=== PATIENT | female | born 1965 | race African-American/Black ===

== ENCOUNTER 2018-07-29 16:57 | Emergency (ER) | payer MEDICARE, OTHER ==
[~2018-07-29] VITALS: Ht 160 cm; Wt 75.0 kg
[~2018-07-29 16:57] MED LIST: ATOR20TA PO; CINA30 PO; CLON0.3T PO; DIPH25CA83 PO; HYDR100T26 PO; KEPP500 PO; LISI40TA4 PO; LOSA50TA20 PO; NIFE30TA94 PO; PANT40TA4 PO; REN800; SERT25TA74 PO; SEVE800T8 PO
[2018-07-29 17:30] VITALS: BP 147/105
[2018-07-30 00:41] LABS: HEMATOCRIT 32.1 % (36.0-48.0); HEMOGLOBIN 10.3 g/dL (12.0-16.0); MEAN CORPUSCULAR VOLUME 90.1 fL (81.0-99.0); PLATELET 152 x1000/uL (130-400); RED BLOOD CELL COUNT 3.56 mill/uL (4.2-5.4); RED CELL DISTRIBUTION WIDTH 19.3 % (11.6-14.6)
[2018-07-30 00:45] LABS: CHLORIDE 98 mEq/L (98-107)
== END 2018-07-30 01:30 | disposition left against medical advice (07) ==
LOC: ER 16:57
DX: N18.6 End stage renal disease (principal); Z45.010 Encounter for checking and testing of cardiac pacemaker pulse generator [battery]; I25.2 Old myocardial infarction; R56.9 Unspecified convulsions; Z99.2 Dependence on renal dialysis; Z86.73 Personal history of transient ischemic attack (TIA), and cerebral infarction without residual deficits
CPT/HCPCS: 36415; 85027; 99283

== ENCOUNTER 2018-07-30 13:09 | Inpatient (IN) | payer MEDICARE, OTHER ==
[~2018-07-30] VITALS: Ht 160 cm; Wt 75.0 kg
[2018-07-30 16:16] LABS: BASOPHILS % 1.2 % (0.0-2.0); EOSINOPHILS % 4.3 % (0.0-5.0); HEMATOCRIT. 29.5 % (36.0-48.0); HEMOGLOBIN. 9.8 g/dL (12.0-16.0); LYMPHOCYTES % 11.2 % (20.0-50.0); MEAN CORPUSCULAR HEMOGLOBIN 29.8 pg (28.0-32.0); MEAN CORPUSCULAR VOLUME 89.4 fL (81.0-99.0); MEAN PLATELET VOLUME 8.5 fl (7.4-10.4); MONOCYTES % 10.3 % (2.0-8.0); PLATELET 177 x1000/uL (130-400); RED CELL DISTRIBUTION WIDTH 19.5 % (11.6-14.6)
[2018-07-30 16:19] LABS: INR 1.2
[2018-07-30 16:24] LABS: CHLORIDE 98 mEq/L (98-107)
[2018-07-30 16:28] LABS: ETHANOL BLOOD < 10 mg/dL
[2018-07-30] MEDS ORDERED: FUROSEMIDE 100MG/10ML VIAL IV STA (16:36)
[2018-07-30] MEDS ORDERED: INSULIN REGULAR (HUMULIN R) 300UNITS/3ML IV ONE ×2 (16:45→17:00)
[2018-07-30] MEDS ORDERED: CALCIUM CHLORIDE 1GM/10ML SYR IV ONE (16:45)
[2018-07-30] MEDS ORDERED: SODIUM POLYSTYRENE SULFONATE 15 G/60 ML BOT PO ONE (16:45)
[2018-07-30] MEDS ORDERED: ALBUTEROL (0.083%) 2.5MG/3ML NEB HHN ONE (16:45)
[2018-07-30] MEDS ORDERED: DEXTROSE 50% WATER 50ML SYRINGE IV ONE (16:45)
[2018-07-30] MEDS ORDERED: SODIUM BICARBONATE 8.4% 1 MEQ/ML 50ML SYR IV ONE (16:45)
[2018-07-30] MEDS ORDERED: GUAIFENESIN 200MG/10ML SUGAR FREE UDC PO PRN (17:45)
[2018-07-30] MEDS ORDERED: NITROGLYCERIN 0.4MG TABLET SL SL PRN (17:45)
[2018-07-30] MEDS ORDERED: MAGNESIUM/ALUMINUM HYDROXIDE/SIMETHICONE 30ML UDC PO PRN (17:45)
[2018-07-30] MEDS ORDERED: IPRATROPIUM/ALBUTEROL 0.5-3(2.5)MG/3ML NEB INH PRN (17:45)
[2018-07-30] MEDS ORDERED: ZOLPIDEM TARTRATE 5MG TABLET PO PRN (17:45)
[2018-07-30 20:00] VITALS: BP 195/108
[2018-07-30] MEDS: METOPROLOL TARTRATE 25MG TABLET PO SCH (21:00)
[2018-07-30] MEDS ORDERED: SODIUM POLYSTYRENE SULFONATE 15 G/60 ML BOT PO NR (23:00)
[2018-07-31] VITALS (7 sets, daily range): BP systolic 112–193; BP diastolic 75–94
[2018-07-31] MEDS: ENOXAPARIN 30MG/0.3ML SYR SUBCUT SCH ×2 (01:32→20:25)
[2018-07-31] MEDS: LEVETIRACETAM 500MG TABLET PO SCH ×3 (01:33→20:24)
[2018-07-31] MEDS: FAMOTIDINE 20MG TABLET PO SCH ×2 (01:33→09:50)
[2018-07-31] MEDS: METOPROLOL TARTRATE 25MG TABLET PO SCH ×2 (09:50→20:24)
[2018-07-31] MEDS: ASPIRIN 325MG EC TABLET PO SCH (09:50)
[2018-07-31] MEDS: FOLIC ACID/VITAMIN B COMP W-C TABLET PO SCH (09:51)
[2018-07-31] MEDS: SEVELAMER CARBONATE 800 MG TABLET PO SCH ×3 (09:51→17:50)
[2018-07-31] MEDS: AMLODIPINE 10MG TABLET PO SCH (09:51)
[2018-07-31] MEDS ORDERED: LIDOCAINE HCL 1% 20ML VIAL (Pyxis) INJ ONE (10:16)
[2018-07-31] MEDS ORDERED: SODIUM BICARBONATE 4% (2.4MEQ) 5ML VIAL IV ONE (10:16)
[2018-07-31] MEDS ORDERED: IOHEXOL-300 100 ML BOTTLE ONE (10:59)
[2018-07-31 13:11] LABS: BASOPHILS % 1.1 % (0.0-2.0); EOSINOPHILS % 8.3 % (0.0-5.0); HEMOGLOBIN. 10.1 g/dL (12.0-16.0); MEAN CORPUSCULAR VOLUME 89.1 fL (81.0-99.0); MEAN PLATELET VOLUME 8.1 fl (7.4-10.4); MONOCYTES % 7.8 % (2.0-8.0); NEUTROPHILS % 74.8 % (40.0-76.0); PLATELET 192 x1000/uL (130-400); RED BLOOD CELL COUNT 3.48 mill/uL (4.2-5.4); RED CELL DISTRIBUTION WIDTH 19.6 % (11.6-14.6)
[2018-07-31 14:14] LABS: PHOSPHORUS 8.2 mg/dL (2.5-4.9)
[2018-07-31] MEDS: TRAMADOL 50MG TABLET PO PRN (21:33)
[2018-07-31] MEDS: ONDANSETRON HCL 4MG/2ML INJ IV PRN (23:17)
[2018-07-31] MEDS: DIPHENHYDRAMINE 50MG/ML VIAL IV PRN (23:18)
[2018-08-01] VITALS: BP 99/64
[2018-08-01 04:00] VITALS: BP 121/76
[2018-08-01] MEDS: SEVELAMER CARBONATE 800 MG TABLET PO SCH ×4 (07:50→17:50)
[2018-08-01 08:00] VITALS: BP 136/90
[2018-08-01 08:07] LABS: BASOPHILS % 1.1 % (0.0-2.0); EOSINOPHILS % 7.1 % (0.0-5.0); HEMATOCRIT. 28.2 % (36.0-48.0); HEMOGLOBIN. 9.2 g/dL (12.0-16.0); LYMPHOCYTES % 7.8 % (20.0-50.0); MEAN CORPUSCULAR VOLUME 88.5 fL (81.0-99.0); MEAN PLATELET VOLUME 8.2 fl (7.4-10.4); MONOCYTES % 8.5 % (2.0-8.0); NEUTROPHILS % 75.5 % (40.0-76.0); PLATELET 156 x1000/uL (130-400); RED BLOOD CELL COUNT 3.19 mill/uL (4.2-5.4); RED CELL DISTRIBUTION WIDTH 19.1 % (11.6-14.6)
[2018-08-01] MEDS: LEVETIRACETAM 500MG TABLET PO SCH ×2 (08:11→20:44)
[2018-08-01] MEDS: FAMOTIDINE 20MG TABLET PO SCH (08:11)
[2018-08-01] MEDS: TRAMADOL 50MG TABLET PO PRN (08:11)
[2018-08-01] MEDS: FOLIC ACID/VITAMIN B COMP W-C TABLET PO SCH (08:11)
[2018-08-01] MEDS: ASPIRIN 325MG EC TABLET PO SCH (08:11)
[2018-08-01] MEDS: AMLODIPINE 10MG TABLET PO SCH (08:59)
[2018-08-01] MEDS: METOPROLOL TARTRATE 25MG TABLET PO SCH ×3 (08:59→20:47)
[2018-08-01 10:59] LABS: PHOSPHORUS 8.1 mg/dL (2.5-4.9)
[2018-08-01] MEDS ORDERED: LIDOCAINE HCL 1% 20ML VIAL (Pyxis) INJ ONE (11:03)
[2018-08-01 12:08] VITALS: BP 157/98
[2018-08-01] MEDS ORDERED: GELATIN SPONGE,ABSORBABLE 12-7MM SPONGE ONE (12:20)
[2018-08-01 16:20] VITALS: BP 171/96
[2018-08-01] MEDS ORDERED: SODIUM POLYSTYRENE SULFONATE 15 G/60 ML BOT PO NR (17:00)
[2018-08-01] MEDS: CLONIDINE 0.1MG TABLET PO PRN (17:14)
[2018-08-01 19:30] LABS: HEPATITIS B SURFACE AB 594.4 mIU/mL
[2018-08-01 19:41] LABS: HEPATITIS B SURFACE ANTIGEN NEGATIVE
[2018-08-02] VITALS: BP 150/76
[2018-08-02 04:00] VITALS: BP 129/61
[2018-08-02 08:28] VITALS: BP 118/66
[2018-08-02] MEDS: AMLODIPINE 10MG TABLET PO SCH (09:00)
[2018-08-02] MEDS: SEVELAMER CARBONATE 800 MG TABLET PO SCH ×3 (10:56→17:39)
[2018-08-02] MEDS: FOLIC ACID/VITAMIN B COMP W-C TABLET PO SCH (10:56)
[2018-08-02] MEDS: ASPIRIN 325MG EC TABLET PO SCH (10:56)
[2018-08-02] MEDS: FAMOTIDINE 20MG TABLET PO SCH (10:57)
[2018-08-02] MEDS: METOPROLOL TARTRATE 25MG TABLET PO SCH (10:57)
[2018-08-02] MEDS: LEVETIRACETAM 500MG TABLET PO SCH ×2 (10:57→20:32)
[2018-08-02] MEDS: TRAMADOL 50MG TABLET PO PRN (11:10)
[2018-08-02 12:08] VITALS: BP 144/92
[2018-08-02] MEDS: LORAZEPAM 2MG/ML CPJ IV PRN ×2 (13:18→20:33)
[2018-08-02 16:03] VITALS: BP 148/56
[2018-08-02 20:00] VITALS: BP 127/81
[2018-08-02] MEDS: METOPROLOL TARTRATE 50MG TABLET PO SCH (20:33)
[2018-08-03] VITALS (8 sets, daily range): BP systolic 113–149; BP diastolic 60–88
[2018-08-03] MEDS: TRAMADOL 50MG TABLET PO PRN (00:07)
[2018-08-03] MEDS: LORAZEPAM 2MG/ML CPJ IV PRN ×3 (00:55→22:48)
[2018-08-03 04:11] LABS: HEMATOCRIT. 26.1 % (36.0-48.0); HEMOGLOBIN. 8.7 g/dL (12.0-16.0); MEAN CORPUSCULAR HEMOGLOBIN 29.4 pg (28.0-32.0); MEAN CORPUSCULAR VOLUME 87.9 fL (81.0-99.0); MEAN PLATELET VOLUME 7.9 fl (7.4-10.4); PLATELET 129 x1000/uL (130-400); RED BLOOD CELL COUNT 2.97 mill/uL (4.2-5.4); RED CELL DISTRIBUTION WIDTH 19.1 % (11.6-14.6)
[2018-08-03 04:24] LABS: PHOSPHORUS 6.3 mg/dL (2.5-4.9)
[2018-08-03] MEDS: SEVELAMER CARBONATE 800 MG TABLET PO SCH ×4 (07:50→17:11)
[2018-08-03] MEDS: AMLODIPINE 5MG TABLET PO SCH (08:32)
[2018-08-03] MEDS: METOPROLOL TARTRATE 50MG TABLET PO SCH ×2 (08:32→22:47)
[2018-08-03] MEDS: FOLIC ACID/VITAMIN B COMP W-C TABLET PO SCH (08:32)
[2018-08-03] MEDS: LEVETIRACETAM 500MG TABLET PO SCH ×2 (08:32→22:46)
[2018-08-03] MEDS: ASPIRIN 325MG EC TABLET PO SCH (08:33)
[2018-08-03] MEDS: FAMOTIDINE 20MG TABLET PO SCH (08:33)
[2018-08-03] MEDS: ACETAMINOPHEN 325MG TABLET PO PRN (22:46)
[2018-08-03] MEDS: EPOETIN ALFA 4000UNITS/ML VIAL SUBCUT SCH (22:47)
[2018-08-04] VITALS: BP 114/68
[2018-08-04 04:00] VITALS: BP 102/71
[2018-08-04 08:00] VITALS: BP 129/71
[2018-08-04] MEDS: SEVELAMER CARBONATE 800 MG TABLET PO SCH ×3 (08:26→17:37)
[2018-08-04] MEDS: FAMOTIDINE 20MG TABLET PO SCH (08:26)
[2018-08-04] MEDS: LEVETIRACETAM 500MG TABLET PO SCH ×2 (08:26→20:35)
[2018-08-04] MEDS: FOLIC ACID/VITAMIN B COMP W-C TABLET PO SCH (08:26)
[2018-08-04] MEDS: METOPROLOL TARTRATE 50MG TABLET PO SCH ×2 (08:26→20:47)
[2018-08-04] MEDS: ASPIRIN 325MG EC TABLET PO SCH (08:26)
[2018-08-04] MEDS: AMLODIPINE 5MG TABLET PO SCH (08:26)
[2018-08-04] MEDS: ACETAMINOPHEN 325MG TABLET PO PRN ×2 (08:27→18:51)
[2018-08-04] MEDS: LORAZEPAM 2MG/ML CPJ IV PRN ×2 (08:36→20:48)
[2018-08-04 12:00] VITALS: BP 83/34
[2018-08-04 14:12] LABS: PLATELET ESTIMATE NORMAL
[2018-08-04] MEDS: DOCUSATE SODIUM 100MG CAPSULE PO PRN (14:12)
[2018-08-04 16:00] VITALS: BP 88/59
[2018-08-04 20:00] VITALS: BP 124/79
[2018-08-05 04:00] VITALS: BP_SYST 119; BP_SYST 148; BP_DIAS 58; BP_DIAS 76
[2018-08-05] MEDS: DOCUSATE SODIUM 100MG CAPSULE PO PRN (06:43)
[2018-08-05] MEDS: SEVELAMER CARBONATE 800 MG TABLET PO SCH ×3 (06:57→18:12)
[2018-08-05 07:00] VITALS: BP 114/78
[2018-08-05 07:34] LABS: HEMATOCRIT. 29.5 % (36.0-48.0); HEMOGLOBIN. 9.4 g/dL (12.0-16.0); MEAN CORPUSCULAR HEMOGLOBIN 28.6 pg (28.0-32.0); MEAN CORPUSCULAR VOLUME 89.3 fL (81.0-99.0); RED CELL DISTRIBUTION WIDTH 19.5 % (11.6-14.6)
[2018-08-05 07:35] LABS: MEAN PLATELET VOLUME 8.5 fl (7.4-10.4); PLATELET 169 x1000/uL (130-400)
[2018-08-05] MEDS ORDERED: VANCOMYCIN 1 G PREMIX 200 ML IV ONE (08:45)
[2018-08-05] MEDS: AMLODIPINE 5MG TABLET PO SCH (09:00)
[2018-08-05] MEDS: METOPROLOL TARTRATE 50MG TABLET PO SCH ×2 (09:00→21:26)
[2018-08-05] MEDS: LEVETIRACETAM 500MG TABLET PO SCH ×2 (09:18→21:26)
[2018-08-05] MEDS: ASPIRIN 325MG EC TABLET PO SCH (09:18)
[2018-08-05] MEDS: FAMOTIDINE 20MG TABLET PO SCH (09:19)
[2018-08-05] MEDS: FOLIC ACID/VITAMIN B COMP W-C TABLET PO SCH (09:21)
[2018-08-05] MEDS ORDERED: VANCOMYCIN 1250MG in DEXTROSE 5% WATER 250ML IV SCH (11:00)
[2018-08-05] MEDS: LORAZEPAM 2MG/ML CPJ IV PRN ×2 (11:30→19:16)
[2018-08-05 12:00] VITALS: BP 121/75
[2018-08-05 13:29] LABS: PLATELET ESTIMATE NORMAL
[2018-08-05] MEDS: CEFTRIAXONE 1 G PREMIX 50 ML IV SCH (14:03)
[2018-08-05 16:00] VITALS: BP 157/90
[2018-08-05 20:00] VITALS: BP 141/96
[2018-08-05] MEDS: EPOETIN ALFA 4000UNITS/ML VIAL SUBCUT SCH (21:26)
[2018-08-06] VITALS: BP 129/80
[2018-08-06] MEDS: LORAZEPAM 2MG/ML CPJ IV PRN ×4 (03:42→22:56)
[2018-08-06 04:00] VITALS: BP 118/79
[2018-08-06 07:20] LABS: HEMATOCRIT. 26.8 % (36.0-48.0); MEAN CORPUSCULAR HEMOGLOBIN 29.3 pg (28.0-32.0); MEAN CORPUSCULAR VOLUME 87.3 fL (81.0-99.0); MEAN PLATELET VOLUME 8.4 fl (7.4-10.4); PLATELET 174 x1000/uL (130-400); RED BLOOD CELL COUNT 3.07 mill/uL (4.2-5.4); RED CELL DISTRIBUTION WIDTH 18.8 % (11.6-14.6)
[2018-08-06] MEDS: SEVELAMER CARBONATE 800 MG TABLET PO SCH ×4 (07:50→17:50)
[2018-08-06 07:59] LABS: PHOSPHORUS 5.7 mg/dL (2.5-4.9)
[2018-08-06] MEDS: METOPROLOL TARTRATE 50MG TABLET PO SCH ×2 (09:00→21:00)
[2018-08-06] MEDS: ASPIRIN 325MG EC TABLET PO SCH (09:00)
[2018-08-06] MEDS: AMLODIPINE 5MG TABLET PO SCH (09:00)
[2018-08-06] MEDS: FOLIC ACID/VITAMIN B COMP W-C TABLET PO SCH (10:16)
[2018-08-06] MEDS: FAMOTIDINE 20MG TABLET PO SCH (10:16)
[2018-08-06] MEDS: LEVETIRACETAM 500MG TABLET PO SCH ×2 (10:16→22:42)
[2018-08-06] MEDS: CEFTRIAXONE 1 G PREMIX 50 ML IV SCH (10:22)
[2018-08-06 10:38] LABS: PLATELET ESTIMATE NORMAL
[2018-08-06] MEDS ORDERED: VANCOMYCIN 1500MG in DEXTROSE 5% WATER 250ML IV SCH (12:00)
[2018-08-06 20:00] VITALS: BP 120/78
[2018-08-06] MEDS: EPOETIN ALFA 10000UNITS/ML VIAL SUBCUT SCH (22:43)
[2018-08-07] VITALS: BP 125/80
[2018-08-07 04:00] VITALS: BP 127/82
[2018-08-07 07:14] LABS: HIV SCREEN 4G Non Reactive (Non Reactive)
[2018-08-07] MEDS: SEVELAMER CARBONATE 800 MG TABLET PO SCH ×3 (07:50→17:50)
[2018-08-07 07:56] LABS: HEMOGLOBIN. 9.1 g/dL (12.0-16.0); MEAN CORPUSCULAR VOLUME 88.9 fL (81.0-99.0); MEAN PLATELET VOLUME 8.1 fl (7.4-10.4); PLATELET 165 x1000/uL (130-400); RED BLOOD CELL COUNT 3.15 mill/uL (4.2-5.4); RED CELL DISTRIBUTION WIDTH 18.9 % (11.6-14.6)
[2018-08-07 08:00] VITALS: BP 154/89
[2018-08-07 08:40] LABS: PHOSPHORUS 5.4 mg/dL (2.5-4.9)
[2018-08-07] MEDS: ACETAMINOPHEN 325MG TABLET PO PRN (09:20)
[2018-08-07] MEDS: FOLIC ACID/VITAMIN B COMP W-C TABLET PO SCH (09:20)
[2018-08-07] MEDS: AMLODIPINE 5MG TABLET PO SCH (09:22)
[2018-08-07] MEDS: LEVETIRACETAM 500MG TABLET PO SCH ×2 (09:22→21:04)
[2018-08-07] MEDS: FAMOTIDINE 20MG TABLET PO SCH (09:22)
[2018-08-07] MEDS: METOPROLOL TARTRATE 50MG TABLET PO SCH ×2 (09:22→21:04)
[2018-08-07] MEDS: ASPIRIN 325MG EC TABLET PO SCH (09:22)
[2018-08-07] MEDS: CEFTRIAXONE 1 G PREMIX 50 ML IV SCH (09:23)
[2018-08-07] MEDS: LORAZEPAM 2MG/ML CPJ IV PRN ×3 (09:25→22:08)
[2018-08-07 10:24] LABS: PLATELET ESTIMATE NORMAL
[2018-08-07] MEDS ORDERED: TRAMADOL 50MG TABLET PO PRN (11:30)
[2018-08-07 12:00] VITALS: BP 122/76
[2018-08-07 16:00] VITALS: BP 130/87
[2018-08-07 20:00] VITALS: BP 129/86
[2018-08-08] VITALS: BP 133/78
[2018-08-08 04:00] VITALS: BP 126/77
[2018-08-08] MEDS: SEVELAMER CARBONATE 800 MG TABLET PO SCH ×4 (07:50→17:15)
[2018-08-08 08:00] VITALS: BP 144/93
[2018-08-08] MEDS: FOLIC ACID/VITAMIN B COMP W-C TABLET PO SCH (08:44)
[2018-08-08] MEDS: ASPIRIN 325MG EC TABLET PO SCH (08:44)
[2018-08-08] MEDS: LEVETIRACETAM 500MG TABLET PO SCH ×2 (08:44→21:30)
[2018-08-08] MEDS: METOPROLOL TARTRATE 50MG TABLET PO SCH ×2 (08:44→21:30)
[2018-08-08] MEDS: AMLODIPINE 5MG TABLET PO SCH (08:44)
[2018-08-08] MEDS: FAMOTIDINE 20MG TABLET PO SCH (08:46)
[2018-08-08] MEDS: LORAZEPAM 2MG/ML CPJ IV PRN ×4 (08:59→21:43)
[2018-08-08] MEDS: CEFTRIAXONE 1 G PREMIX 50 ML IV SCH (10:43)
[2018-08-08 11:33] VITALS: BP 117/77
[2018-08-08 16:00] VITALS: BP 102/72
[2018-08-08] MEDS: EPOETIN ALFA 10000UNITS/ML VIAL SUBCUT SCH (21:43)
[2018-08-09] VITALS: BP 134/88
[2018-08-09 04:00] VITALS: BP 142/90
[2018-08-09] MEDS: LORAZEPAM 2MG/ML CPJ IV PRN ×5 (05:40→21:39)
[2018-08-09] MEDS: SEVELAMER CARBONATE 800 MG TABLET PO SCH ×3 (07:50→16:51)
[2018-08-09 08:00] VITALS: BP 129/64
[2018-08-09] MEDS: FOLIC ACID/VITAMIN B COMP W-C TABLET PO SCH (08:40)
[2018-08-09] MEDS: AMLODIPINE 5MG TABLET PO SCH (08:40)
[2018-08-09] MEDS: LEVETIRACETAM 500MG TABLET PO SCH ×2 (08:40→21:40)
[2018-08-09] MEDS: METOPROLOL TARTRATE 50MG TABLET PO SCH ×2 (08:40→21:39)
[2018-08-09] MEDS: FAMOTIDINE 20MG TABLET PO SCH (08:40)
[2018-08-09] MEDS: ASPIRIN 325MG EC TABLET PO SCH (08:40)
[2018-08-09] MEDS: CEFTRIAXONE 1 G PREMIX 50 ML IV SCH (10:34)
[2018-08-09 12:00] VITALS: BP 103/65
[2018-08-09 16:00] VITALS: BP 121/80
[2018-08-09 20:00] VITALS: BP 122/75
[2018-08-10] VITALS: BP 116/71
[2018-08-10 04:00] VITALS: BP 136/93
[2018-08-10] MEDS: LORAZEPAM 2MG/ML CPJ IV PRN ×4 (05:14→23:06)
[2018-08-10 06:07] LABS: BASOPHILS % 1.4 % (0.0-2.0); EOSINOPHILS % 7.5 % (0.0-5.0); HEMATOCRIT. 24.2 % (36.0-48.0); HEMOGLOBIN. 8.1 g/dL (12.0-16.0); LYMPHOCYTES % 16.4 % (20.0-50.0); MEAN CORPUSCULAR HEMOGLOBIN 29.6 pg (28.0-32.0); MEAN CORPUSCULAR VOLUME 88.2 fL (81.0-99.0); MEAN PLATELET VOLUME 7.7 fl (7.4-10.4); MONOCYTES % 10.9 % (2.0-8.0); NEUTROPHILS % 63.8 % (40.0-76.0); PLATELET 210 x1000/uL (130-400); RED BLOOD CELL COUNT 2.75 mill/uL (4.2-5.4)
[2018-08-10 08:00] VITALS: BP 116/74
[2018-08-10 08:06] LABS: PHOSPHORUS 6.3 mg/dL (2.5-4.9)
[2018-08-10] MEDS: CEFTRIAXONE 1 G PREMIX 50 ML IV SCH (09:17)
[2018-08-10] MEDS: SEVELAMER CARBONATE 800 MG TABLET PO SCH ×3 (09:18→18:16)
[2018-08-10] MEDS: AMLODIPINE 5MG TABLET PO SCH (09:18)
[2018-08-10] MEDS: FOLIC ACID/VITAMIN B COMP W-C TABLET PO SCH (09:18)
[2018-08-10] MEDS: LEVETIRACETAM 500MG TABLET PO SCH ×2 (09:18→23:05)
[2018-08-10] MEDS: FAMOTIDINE 20MG TABLET PO SCH (09:18)
[2018-08-10] MEDS: ASPIRIN 325MG EC TABLET PO SCH (09:19)
[2018-08-10] MEDS: METOPROLOL TARTRATE 50MG TABLET PO SCH ×2 (09:19→23:04)
[2018-08-10 12:00] VITALS: BP 124/85
[2018-08-10 16:00] VITALS: BP 133/88
[2018-08-10] MEDS: CALCIUM ACETATE 667MG CAPSULE PO SCH (18:16)
[2018-08-10 20:00] VITALS: BP 136/92
[2018-08-11] VITALS: BP 105/59
[2018-08-11 04:00] VITALS: BP 140/93
[2018-08-11] MEDS: LORAZEPAM 2MG/ML CPJ IV PRN ×2 (04:46→20:22)
[2018-08-11] MEDS: CALCIUM ACETATE 667MG CAPSULE PO SCH ×3 (07:50→17:50)
[2018-08-11] MEDS: SEVELAMER CARBONATE 800 MG TABLET PO SCH ×3 (07:50→17:50)
[2018-08-11 08:00] VITALS: BP 131/87
[2018-08-11] MEDS: ASPIRIN 325MG EC TABLET PO SCH (09:00)
[2018-08-11] MEDS: AMLODIPINE 5MG TABLET PO SCH (09:00)
[2018-08-11] MEDS: FAMOTIDINE 20MG TABLET PO SCH (09:00)
[2018-08-11] MEDS: METOPROLOL TARTRATE 50MG TABLET PO SCH ×2 (09:00→20:09)
[2018-08-11] MEDS: FOLIC ACID/VITAMIN B COMP W-C TABLET PO SCH (09:00)
[2018-08-11] MEDS: LEVETIRACETAM 500MG TABLET PO SCH ×2 (09:54→20:08)
[2018-08-11] MEDS: CEFTRIAXONE 1 G PREMIX 50 ML IV SCH (09:55)
[2018-08-11 12:00] VITALS: BP 139/95
[2018-08-11 13:10] LABS: BASOPHILS % 3.2 % (0.0-2.0); EOSINOPHILS % 4.1 % (0.0-5.0); HEMATOCRIT. 23.5 % (36.0-48.0); HEMOGLOBIN. 7.8 g/dL (12.0-16.0); LYMPHOCYTES % 17.6 % (20.0-50.0); MEAN CORPUSCULAR HEMOGLOBIN 29.2 pg (28.0-32.0); MEAN CORPUSCULAR VOLUME 87.9 fL (81.0-99.0); MEAN PLATELET VOLUME 7.4 fl (7.4-10.4); NEUTROPHILS % 70.1 % (40.0-76.0); PLATELET 201 x1000/uL (130-400); RED BLOOD CELL COUNT 2.67 mill/uL (4.2-5.4); RED CELL DISTRIBUTION WIDTH 19.3 % (11.6-14.6)
[2018-08-11 13:18] LABS: PHOSPHORUS 5.9 mg/dL (2.5-4.9)
[2018-08-11 20:00] VITALS: BP 126/77
[2018-08-11] MEDS: DIPHENHYDRAMINE 50MG/ML VIAL IV PRN (20:09)
[2018-08-11] MEDS: EPOETIN ALFA 10000UNITS/ML VIAL SUBCUT SCH (22:02)
[2018-08-12] VITALS: BP 133/81
[2018-08-12] MEDS: LORAZEPAM 2MG/ML CPJ IV PRN ×2 (00:38→21:22)
[2018-08-12] MEDS: DIPHENHYDRAMINE 50MG/ML VIAL IV PRN (00:38)
[2018-08-12 04:00] VITALS: BP 122/78
[2018-08-12 08:00] VITALS: BP 127/94
[2018-08-12] MEDS: LEVETIRACETAM 500MG TABLET PO SCH ×2 (08:25→20:37)
[2018-08-12] MEDS: FOLIC ACID/VITAMIN B COMP W-C TABLET PO SCH (08:25)
[2018-08-12] MEDS: METOPROLOL TARTRATE 50MG TABLET PO SCH ×2 (08:25→20:37)
[2018-08-12] MEDS: SEVELAMER CARBONATE 800 MG TABLET PO SCH ×3 (08:25→16:43)
[2018-08-12] MEDS: AMLODIPINE 5MG TABLET PO SCH (08:25)
[2018-08-12] MEDS: FAMOTIDINE 20MG TABLET PO SCH (08:25)
[2018-08-12] MEDS: ASPIRIN 325MG EC TABLET PO SCH (08:26)
[2018-08-12] MEDS: CALCIUM ACETATE 667MG CAPSULE PO SCH ×3 (08:26→17:09)
[2018-08-12 12:00] VITALS: BP 122/86
[2018-08-12] MEDS: CEFTRIAXONE 1 G PREMIX 50 ML IV SCH (12:30)
[2018-08-12 16:00] VITALS: BP 145/96
[2018-08-12 20:00] VITALS: BP 133/95
[2018-08-13] VITALS: BP 125/77
[2018-08-13] MEDS: ONDANSETRON HCL 4MG/2ML INJ IV PRN (00:22)
[2018-08-13 04:00] VITALS: BP 146/98
[2018-08-13] MEDS: LORAZEPAM 2MG/ML CPJ IV PRN ×3 (04:42→20:57)
[2018-08-13 07:10] LABS: HEMOGLOBIN. 8.1 g/dL (12.0-16.0); MEAN CORPUSCULAR HEMOGLOBIN 29.2 pg (28.0-32.0); MEAN CORPUSCULAR VOLUME 89.8 fL (81.0-99.0); MEAN PLATELET VOLUME 7.5 fl (7.4-10.4); PLATELET 201 x1000/uL (130-400); RED BLOOD CELL COUNT 2.79 mill/uL (4.2-5.4); RED CELL DISTRIBUTION WIDTH 19.6 % (11.6-14.6)
[2018-08-13 07:35] LABS: PHOSPHORUS 6.8 mg/dL (2.5-4.9)
[2018-08-13] MEDS: SEVELAMER CARBONATE 800 MG TABLET PO SCH ×3 (07:50→17:50)
[2018-08-13] MEDS: METOPROLOL TARTRATE 50MG TABLET PO SCH ×2 (09:00→21:00)
[2018-08-13] MEDS: AMLODIPINE 5MG TABLET PO SCH (09:00)
[2018-08-13] MEDS: CALCIUM ACETATE 667MG CAPSULE PO SCH ×3 (09:04→17:53)
[2018-08-13] MEDS: FOLIC ACID/VITAMIN B COMP W-C TABLET PO SCH (09:04)
[2018-08-13] MEDS: ASPIRIN 325MG EC TABLET PO SCH (09:04)
[2018-08-13] MEDS: LEVETIRACETAM 500MG TABLET PO SCH ×2 (09:04)
[2018-08-13] MEDS: FAMOTIDINE 20MG TABLET PO SCH (09:04)
[2018-08-13] MEDS: CEFTRIAXONE 1 G PREMIX 50 ML IV SCH (10:00)
[2018-08-13 13:42] LABS: PLATELET ESTIMATE NORMAL
[2018-08-13 16:00] VITALS: BP 115/73
[2018-08-13 20:00] VITALS: BP 133/87
[2018-08-13] MEDS: ACETAMINOPHEN 325MG TABLET PO PRN (23:22)
[2018-08-14] MEDS: DIPHENHYDRAMINE 50MG/ML VIAL IV PRN ×2 (00:25→23:03)
[2018-08-14] MEDS: LORAZEPAM 2MG/ML CPJ IV PRN ×4 (01:58→23:03)
[2018-08-14 04:00] VITALS: BP 141/92
[2018-08-14 06:57] LABS: BASOPHILS % 1.2 % (0.0-2.0); HEMATOCRIT. 23.9 % (36.0-48.0); HEMOGLOBIN. 8.1 g/dL (12.0-16.0); LYMPHOCYTES % 12.5 % (20.0-50.0); MEAN CORPUSCULAR HEMOGLOBIN 30.3 pg (28.0-32.0); MEAN CORPUSCULAR VOLUME 89.8 fL (81.0-99.0); MEAN PLATELET VOLUME 7.6 fl (7.4-10.4); MONOCYTES % 5.8 % (2.0-8.0); NEUTROPHILS % 78.5 % (40.0-76.0); PLATELET 152 x1000/uL (130-400); RED BLOOD CELL COUNT 2.66 mill/uL (4.2-5.4); RED CELL DISTRIBUTION WIDTH 19.6 % (11.6-14.6)
[2018-08-14] MEDS: CALCIUM ACETATE 667MG CAPSULE PO SCH ×4 (07:50→17:07)
[2018-08-14 07:55] LABS: PHOSPHORUS 4.7 mg/dL (2.5-4.9)
[2018-08-14 08:00] VITALS: BP 126/72
[2018-08-14] MEDS: FOLIC ACID/VITAMIN B COMP W-C TABLET PO SCH (08:38)
[2018-08-14] MEDS: SEVELAMER CARBONATE 800 MG TABLET PO SCH ×4 (08:39→17:07)
[2018-08-14] MEDS: LEVETIRACETAM 500MG TABLET PO SCH ×2 (08:39→22:05)
[2018-08-14] MEDS: METOPROLOL TARTRATE 50MG TABLET PO SCH ×2 (08:39→22:05)
[2018-08-14] MEDS: AMLODIPINE 5MG TABLET PO SCH (08:39)
[2018-08-14] MEDS: ASPIRIN 325MG EC TABLET PO SCH (08:39)
[2018-08-14] MEDS: FAMOTIDINE 20MG TABLET PO SCH (08:39)
[2018-08-14] MEDS: CEFTRIAXONE 1 G PREMIX 50 ML IV SCH (10:17)
[2018-08-14 12:00] VITALS: BP 120/78
[2018-08-14 16:00] VITALS: BP 123/77
[2018-08-14 20:00] VITALS: BP 115/75
[2018-08-14] MEDS: EPOETIN ALFA 10000UNITS/ML VIAL SUBCUT SCH (22:24)
[2018-08-15] VITALS: BP 114/75
[2018-08-15 04:00] VITALS: BP 129/88
[2018-08-15] MEDS: SEVELAMER CARBONATE 800 MG TABLET PO SCH ×3 (07:50→14:32)
[2018-08-15] MEDS: CALCIUM ACETATE 667MG CAPSULE PO SCH ×3 (08:45→17:50)
[2018-08-15] MEDS: FAMOTIDINE 20MG TABLET PO SCH (08:46)
[2018-08-15] MEDS: METOPROLOL TARTRATE 50MG TABLET PO SCH ×2 (08:46→22:12)
[2018-08-15] MEDS: AMLODIPINE 5MG TABLET PO SCH (08:46)
[2018-08-15] MEDS: FOLIC ACID/VITAMIN B COMP W-C TABLET PO SCH (08:46)
[2018-08-15] MEDS: ASPIRIN 325MG EC TABLET PO SCH (08:46)
[2018-08-15] MEDS: LEVETIRACETAM 500MG TABLET PO SCH ×2 (08:46→22:12)
[2018-08-15] MEDS: LORAZEPAM 2MG/ML CPJ IV PRN ×2 (09:10→23:43)
[2018-08-15 09:56] LABS: BASOPHILS % 1.3 % (0.0-2.0); HEMATOCRIT. 22.4 % (36.0-48.0); HEMOGLOBIN. 7.2 g/dL (12.0-16.0); LYMPHOCYTES % 13.2 % (20.0-50.0); MEAN CORPUSCULAR HEMOGLOBIN 29.3 pg (28.0-32.0); MEAN PLATELET VOLUME 7.5 fl (7.4-10.4); MONOCYTES % 5.8 % (2.0-8.0); NEUTROPHILS % 76.7 % (40.0-76.0); PLATELET 152 x1000/uL (130-400); RED BLOOD CELL COUNT 2.46 mill/uL (4.2-5.4); RED CELL DISTRIBUTION WIDTH 19.6 % (11.6-14.6)
[2018-08-15 10:14] LABS: PHOSPHORUS 5.5 mg/dL (2.5-4.9)
[2018-08-15] MEDS ORDERED: MAGNESIUM SULFATE 1GM/2ML VIAL IV ONE (19:00)
[2018-08-15 20:00] VITALS: BP 119/63
[2018-08-16] VITALS: BP 110/60
[2018-08-16] MEDS: SEVELAMER CARBONATE 800 MG TABLET PO SCH ×3 (07:50→08:10)
[2018-08-16 08:00] VITALS: BP 142/82
[2018-08-16] MEDS: ASPIRIN 325MG EC TABLET PO SCH (08:26)
[2018-08-16] MEDS: FOLIC ACID/VITAMIN B COMP W-C TABLET PO SCH (08:26)
[2018-08-16] MEDS: CALCIUM ACETATE 667MG CAPSULE PO SCH ×3 (08:26→17:27)
[2018-08-16] MEDS: LEVETIRACETAM 500MG TABLET PO SCH ×2 (08:26→22:07)
[2018-08-16] MEDS: FAMOTIDINE 20MG TABLET PO SCH (08:26)
[2018-08-16] MEDS: METOPROLOL TARTRATE 50MG TABLET PO SCH ×2 (08:26→22:08)
[2018-08-16] MEDS: AMLODIPINE 10MG TABLET PO SCH (08:26)
[2018-08-16 12:00] VITALS: BP 140/70
[2018-08-16 16:00] VITALS: BP 108/72
[2018-08-16] MEDS: CEFTRIAXONE 1 G PREMIX 50 ML IV SCH (17:00)
[2018-08-16 20:00] VITALS: BP 118/74
[2018-08-16] MEDS: MIRTAZAPINE 15MG TABLET PO SCH (22:07)
[2018-08-17] VITALS: BP 112/68
[2018-08-17 04:00] VITALS: BP 122/72
[2018-08-17] MEDS: SEVELAMER CARBONATE 800 MG TABLET PO SCH ×2 (07:50→12:50)
[2018-08-17] MEDS: CALCIUM ACETATE 667MG CAPSULE PO SCH ×3 (07:50→17:50)
[2018-08-17 08:00] VITALS: BP 113/65
[2018-08-17] MEDS: AMLODIPINE 10MG TABLET PO SCH (08:15)
[2018-08-17] MEDS: METOPROLOL TARTRATE 50MG TABLET PO SCH ×2 (08:16→21:57)
[2018-08-17] MEDS: FOLIC ACID/VITAMIN B COMP W-C TABLET PO SCH (08:18)
[2018-08-17] MEDS: FAMOTIDINE 20MG TABLET PO SCH (08:18)
[2018-08-17] MEDS: LEVETIRACETAM 500MG TABLET PO SCH ×2 (08:18→21:46)
[2018-08-17] MEDS: ASPIRIN 325MG EC TABLET PO SCH (08:18)
[2018-08-17] MEDS: CEFTRIAXONE 1 G PREMIX 50 ML IV SCH (17:00)
[2018-08-17 19:46] LABS: BASOPHILS % 1.5 % (0.0-2.0); EOSINOPHILS % 1.7 % (0.0-5.0); HEMATOCRIT. 31.2 % (36.0-48.0); HEMOGLOBIN. 9.8 g/dL (12.0-16.0); LYMPHOCYTES % 14.8 % (20.0-50.0); MEAN CORPUSCULAR HEMOGLOBIN 29.8 pg (28.0-32.0); MEAN CORPUSCULAR VOLUME 95.1 fL (81.0-99.0); MEAN PLATELET VOLUME 7.8 fl (7.4-10.4); MONOCYTES % 6.6 % (2.0-8.0); NEUTROPHILS % 75.4 % (40.0-76.0); PLATELET 178 x1000/uL (130-400); RED BLOOD CELL COUNT 3.28 mill/uL (4.2-5.4); RED CELL DISTRIBUTION WIDTH 21.1 % (11.6-14.6)
[2018-08-17 19:59] LABS: PHOSPHORUS 6.3 mg/dL (2.5-4.9)
[2018-08-17 20:00] VITALS: BP 110/64
[2018-08-17 20:04] LABS: CREATINE KINASE MB FRACTION 1.8 ng/mL (0.5-3.6)
[2018-08-17] MEDS: MIRTAZAPINE 15MG TABLET PO SCH (21:46)
[2018-08-18] VITALS: BP 122/76
[2018-08-18] MEDS: EPOETIN ALFA 10000UNITS/ML VIAL SUBCUT SCH (01:00)
[2018-08-18 08:00] VITALS: BP 130/96
[2018-08-18] MEDS: CALCIUM ACETATE 667MG CAPSULE PO SCH ×3 (08:15→17:50)
[2018-08-18] MEDS: FOLIC ACID/VITAMIN B COMP W-C TABLET PO SCH (08:15)
[2018-08-18] MEDS: FAMOTIDINE 20MG TABLET PO SCH (08:15)
[2018-08-18] MEDS: LEVETIRACETAM 500MG TABLET PO SCH ×2 (08:15→21:22)
[2018-08-18] MEDS: ASPIRIN 325MG EC TABLET PO SCH (08:15)
[2018-08-18] MEDS: METOPROLOL TARTRATE 50MG TABLET PO SCH ×2 (09:00→21:22)
[2018-08-18] MEDS: AMLODIPINE 10MG TABLET PO SCH (09:00)
[2018-08-18] MEDS ORDERED: LIDOCAINE HCL 1% 20ML VIAL (Pyxis) INJ ONE (09:09)
[2018-08-18] MEDS: LORAZEPAM 2MG/ML CPJ IV PRN ×2 (11:08→21:31)
[2018-08-18 12:00] VITALS: BP 143/89
[2018-08-18 16:00] VITALS: BP 106/90
[2018-08-18] MEDS: CEFTRIAXONE 1 G PREMIX 50 ML IV SCH (17:00)
[2018-08-18 20:00] VITALS: BP 102/61
[2018-08-18] MEDS: MIRTAZAPINE 15MG TABLET PO SCH (21:22)
[2018-08-18 22:14] LABS: BASOPHILS % 1.6 % (0.0-2.0); EOSINOPHILS % 2.5 % (0.0-5.0); HEMATOCRIT. 25.8 % (36.0-48.0); HEMOGLOBIN. 8.5 g/dL (12.0-16.0); LYMPHOCYTES % 11.4 % (20.0-50.0); MEAN CORPUSCULAR HEMOGLOBIN 30.8 pg (28.0-32.0); MEAN CORPUSCULAR VOLUME 93.8 fL (81.0-99.0); MEAN PLATELET VOLUME 7.9 fl (7.4-10.4); MONOCYTES % 6.6 % (2.0-8.0); NEUTROPHILS % 77.9 % (40.0-76.0); PLATELET 156 x1000/uL (130-400); RED BLOOD CELL COUNT 2.75 mill/uL (4.2-5.4); RED CELL DISTRIBUTION WIDTH 20.8 % (11.6-14.6)
[2018-08-18 22:22] LABS: PHOSPHORUS 4.4 mg/dL (2.5-4.9)
[2018-08-19] VITALS: BP 127/79
[2018-08-19] MEDS: LORAZEPAM 2MG/ML CPJ IV PRN ×3 (03:22→16:30)
[2018-08-19 04:00] VITALS: BP 106/53
[2018-08-19 09:49] VITALS: BP 168/104
[2018-08-19] MEDS: CALCIUM ACETATE 667MG CAPSULE PO SCH ×3 (09:54→17:29)
[2018-08-19] MEDS: FOLIC ACID/VITAMIN B COMP W-C TABLET PO SCH (09:54)
[2018-08-19] MEDS: FAMOTIDINE 20MG TABLET PO SCH (09:55)
[2018-08-19] MEDS: LEVETIRACETAM 500MG TABLET PO SCH ×2 (09:55→21:29)
[2018-08-19] MEDS: ASPIRIN 325MG EC TABLET PO SCH (09:55)
[2018-08-19] MEDS: METOPROLOL TARTRATE 50MG TABLET PO SCH ×2 (10:01→21:29)
[2018-08-19] MEDS: AMLODIPINE 10MG TABLET PO SCH (10:01)
[2018-08-19 16:00] VITALS: BP 155/102
[2018-08-19] MEDS: CLONIDINE 0.1MG TABLET PO PRN (16:30)
[2018-08-19] MEDS: CEFTRIAXONE 1 G PREMIX 50 ML IV SCH (16:32)
[2018-08-19 20:00] VITALS: BP 129/78
[2018-08-19] MEDS: MIRTAZAPINE 15MG TABLET PO SCH (21:29)
[2018-08-20] VITALS: BP 122/67
[2018-08-20] MEDS: LORAZEPAM 2MG/ML CPJ IV PRN (00:46)
[2018-08-20 04:00] VITALS: BP 135/76
[2018-08-20 06:26] LABS: EOSINOPHILS % 3.4 % (0.0-5.0); HEMATOCRIT. 25.9 % (36.0-48.0); HEMOGLOBIN. 8.4 g/dL (12.0-16.0); LYMPHOCYTES % 14.4 % (20.0-50.0); MEAN CORPUSCULAR HEMOGLOBIN 30.7 pg (28.0-32.0); MEAN CORPUSCULAR VOLUME 94.6 fL (81.0-99.0); MEAN PLATELET VOLUME 7.6 fl (7.4-10.4); MONOCYTES % 5.9 % (2.0-8.0); NEUTROPHILS % 74.3 % (40.0-76.0); PLATELET 155 x1000/uL (130-400); RED BLOOD CELL COUNT 2.74 mill/uL (4.2-5.4); RED CELL DISTRIBUTION WIDTH 26.4 % (11.6-14.6)
[2018-08-20 06:58] LABS: PHOSPHORUS 5.6 mg/dL (2.5-4.9)
[2018-08-20] MEDS: FOLIC ACID/VITAMIN B COMP W-C TABLET PO SCH (08:32)
[2018-08-20] MEDS: FAMOTIDINE 20MG TABLET PO SCH (08:32)
[2018-08-20] MEDS: CALCIUM ACETATE 667MG CAPSULE PO SCH ×3 (08:32→17:30)
[2018-08-20] MEDS: LEVETIRACETAM 500MG TABLET PO SCH ×2 (08:33→21:11)
[2018-08-20] MEDS: ASPIRIN 325MG EC TABLET PO SCH (08:33)
[2018-08-20] MEDS: AMLODIPINE 10MG TABLET PO SCH (08:33)
[2018-08-20] MEDS: METOPROLOL TARTRATE 50MG TABLET PO SCH ×2 (08:33→21:00)
[2018-08-20 12:00] VITALS: BP 135/82
[2018-08-20 14:21] VITALS: BP 118/70
[2018-08-20] MEDS: CEFTRIAXONE 1 G PREMIX 50 ML IV SCH (17:24)
[2018-08-20 20:00] VITALS: BP 101/64
[2018-08-20] MEDS: MIRTAZAPINE 15MG TABLET PO SCH (21:10)
[2018-08-21] VITALS: BP 155/71
[2018-08-21 04:00] VITALS: BP 144/71
[2018-08-21 08:00] VITALS: BP 110/69
[2018-08-21] MEDS: CALCIUM ACETATE 667MG CAPSULE PO SCH ×3 (09:00→17:34)
[2018-08-21] MEDS: FOLIC ACID/VITAMIN B COMP W-C TABLET PO SCH (09:00)
[2018-08-21] MEDS: METOPROLOL TARTRATE 50MG TABLET PO SCH ×2 (09:01→20:39)
[2018-08-21] MEDS: ASPIRIN 325MG EC TABLET PO SCH (09:01)
[2018-08-21] MEDS: AMLODIPINE 10MG TABLET PO SCH (09:01)
[2018-08-21] MEDS: FAMOTIDINE 20MG TABLET PO SCH (09:02)
[2018-08-21] MEDS: LEVETIRACETAM 500MG TABLET PO SCH ×2 (09:25→20:39)
[2018-08-21 12:00] VITALS: BP 119/66
[2018-08-21 16:00] VITALS: BP 133/83
[2018-08-21] MEDS: CEFTRIAXONE 1 G PREMIX 50 ML IV SCH (17:00)
[2018-08-21 20:00] VITALS: BP 144/93
[2018-08-21] MEDS: MIRTAZAPINE 15MG TABLET PO SCH (20:39)
[2018-08-22] VITALS: BP 134/89
[2018-08-22 04:00] VITALS: BP 133/72
[2018-08-22 08:00] VITALS: BP 104/80
[2018-08-22] MEDS: METOPROLOL TARTRATE 50MG TABLET PO SCH ×2 (09:00→20:11)
[2018-08-22] MEDS: AMLODIPINE 10MG TABLET PO SCH (09:00)
[2018-08-22] MEDS: FOLIC ACID/VITAMIN B COMP W-C TABLET PO SCH (09:18)
[2018-08-22] MEDS: FAMOTIDINE 20MG TABLET PO SCH (09:19)
[2018-08-22] MEDS: LEVETIRACETAM 500MG TABLET PO SCH ×2 (09:19→22:34)
[2018-08-22] MEDS: CALCIUM ACETATE 667MG CAPSULE PO SCH ×3 (09:19→17:50)
[2018-08-22] MEDS: ASPIRIN 325MG EC TABLET PO SCH (09:20)
[2018-08-22] MEDS ORDERED: LORAZEPAM 2MG/ML CPJ IV PRN (10:45)
[2018-08-22 12:00] VITALS: BP 140/83
[2018-08-22] MEDS ORDERED: LORAZEPAM 0.5MG TABLET PO PRN (12:30)
[2018-08-22 16:00] VITALS: BP 148/84
[2018-08-22] MEDS: CEFTRIAXONE 1 G PREMIX 50 ML IV SCH (18:06)
[2018-08-22 20:00] VITALS: BP 105/52
[2018-08-22] MEDS: LORAZEPAM 0.5MG TABLET PO PRN (20:02)
[2018-08-22] MEDS: MIRTAZAPINE 15MG TABLET PO SCH (20:11)
[2018-08-23] VITALS: BP 118/72
[2018-08-23 04:00] VITALS: BP 113/75
[2018-08-23 08:00] VITALS: BP 128/77
[2018-08-23] MEDS: LORAZEPAM 0.5MG TABLET PO PRN ×2 (09:14→18:09)
[2018-08-23] MEDS: CALCIUM ACETATE 667MG CAPSULE PO SCH ×3 (09:14→18:09)
[2018-08-23] MEDS: FAMOTIDINE 20MG TABLET PO SCH (09:14)
[2018-08-23] MEDS: LEVETIRACETAM 500MG TABLET PO SCH ×2 (09:14→22:35)
[2018-08-23] MEDS: ASPIRIN 325MG EC TABLET PO SCH (09:14)
[2018-08-23] MEDS: FOLIC ACID/VITAMIN B COMP W-C TABLET PO SCH (09:14)
[2018-08-23] MEDS: METOPROLOL TARTRATE 50MG TABLET PO SCH ×2 (09:15→22:37)
[2018-08-23] MEDS: AMLODIPINE 10MG TABLET PO SCH (09:15)
[2018-08-23 12:00] VITALS: BP 120/69
[2018-08-23 16:00] VITALS: BP 128/86
[2018-08-23 16:56] LABS: BASOPHILS % 2.3 % (0.0-2.0); EOSINOPHILS % 6.3 % (0.0-5.0); HEMATOCRIT. 27.2 % (36.0-48.0); HEMOGLOBIN. 8.5 g/dL (12.0-16.0); LYMPHOCYTES % 16.5 % (20.0-50.0); MEAN CORPUSCULAR HEMOGLOBIN 30.3 pg (28.0-32.0); MEAN CORPUSCULAR VOLUME 97.2 fL (81.0-99.0); MEAN PLATELET VOLUME 7.4 fl (7.4-10.4); MONOCYTES % 9.2 % (2.0-8.0); NEUTROPHILS % 65.7 % (40.0-76.0); PLATELET 147 x1000/uL (130-400); RED CELL DISTRIBUTION WIDTH 27.5 % (11.6-14.6)
[2018-08-23] MEDS: CEFTRIAXONE 1 G PREMIX 50 ML IV SCH (17:00)
[2018-08-23 17:07] LABS: PHOSPHORUS 4.8 mg/dL (2.5-4.9)
[2018-08-23 20:00] VITALS: BP 132/97
[2018-08-23] MEDS: MIRTAZAPINE 15MG TABLET PO SCH (22:36)
[2018-08-24] VITALS: BP 100/60
[2018-08-24 04:00] VITALS: BP 121/67
[2018-08-24] MEDS: LORAZEPAM 0.5MG TABLET PO PRN (05:33)
[2018-08-24] MEDS: CALCIUM ACETATE 667MG CAPSULE PO SCH ×3 (08:44→18:20)
[2018-08-24] MEDS: ASPIRIN 325MG EC TABLET PO SCH (08:44)
[2018-08-24] MEDS: FAMOTIDINE 20MG TABLET PO SCH (08:44)
[2018-08-24] MEDS: FOLIC ACID/VITAMIN B COMP W-C TABLET PO SCH (08:44)
[2018-08-24] MEDS: LEVETIRACETAM 500MG TABLET PO SCH ×2 (08:44→21:44)
[2018-08-24] MEDS: AMLODIPINE 10MG TABLET PO SCH (08:46)
[2018-08-24] MEDS: METOPROLOL TARTRATE 50MG TABLET PO SCH ×2 (08:46→21:44)
[2018-08-24 16:26] LABS: BASOPHILS % 1.7 % (0.0-2.0); EOSINOPHILS % 8.3 % (0.0-5.0); HEMATOCRIT. 28.4 % (36.0-48.0); HEMOGLOBIN. 9.1 g/dL (12.0-16.0); LYMPHOCYTES % 10.4 % (20.0-50.0); MEAN CORPUSCULAR HEMOGLOBIN 30.3 pg (28.0-32.0); MEAN CORPUSCULAR VOLUME 94.2 fL (81.0-99.0); MEAN PLATELET VOLUME 7.6 fl (7.4-10.4); MONOCYTES % 4.6 % (2.0-8.0); PLATELET 158 x1000/uL (130-400); RED BLOOD CELL COUNT 3.01 mill/uL (4.2-5.4); RED CELL DISTRIBUTION WIDTH 26.4 % (11.6-14.6)
[2018-08-24] MEDS: CEFTRIAXONE 1 G PREMIX 50 ML IV SCH (16:49)
[2018-08-24 18:48] VITALS: BP 121/62
[2018-08-24 20:00] VITALS: BP 123/82
[2018-08-24] MEDS: MIRTAZAPINE 15MG TABLET PO SCH (21:44)
== END 2018-08-24 22:00 | disposition home or self-care (01) | DRG 871 ==
LOC: ER 13:15 → ENRESERV 15:41 → 6WST 17:48 → EDBEDREQ 17:57 → 6EST 08-03 10:56
PROVIDERS: ADMIT Internal Medicine; ATTEND Internal Medicine
PROC: 5A1D70Z Performance of Urinary Filtration, Intermittent, Less than 6 Hours Per Day (ICD-10-PCS; 2018-07-30)
PROC: 02HV33Z Insertion of Infusion Device into Superior Vena Cava, Percutaneous Approach (ICD-10-PCS; principal; 2018-07-31)
PROC: B548ZZA Ultrasonography of Superior Vena Cava, Guidance (ICD-10-PCS; 2018-07-31)
PROC: B5181ZA Fluoroscopy of Superior Vena Cava using Low Osmolar Contrast, Guidance (ICD-10-PCS; 2018-07-31)
PROC: 0JPV3XZ Removal of Tunneled Vascular Access Device from Upper Extremity Subcutaneous Tissue and Fascia, Percutaneous Approach (ICD-10-PCS; 2018-08-01)
PROC: 5A1D70Z Performance of Urinary Filtration, Intermittent, Less than 6 Hours Per Day (ICD-10-PCS; 2018-08-01)
PROC: 5A1D70Z Performance of Urinary Filtration, Intermittent, Less than 6 Hours Per Day (ICD-10-PCS; 2018-08-03)
PROC: 5A1D70Z Performance of Urinary Filtration, Intermittent, Less than 6 Hours Per Day (ICD-10-PCS; 2018-08-05)
PROC: 5A1D70Z Performance of Urinary Filtration, Intermittent, Less than 6 Hours Per Day (ICD-10-PCS; 2018-08-07)
PROC: 5A1D70Z Performance of Urinary Filtration, Intermittent, Less than 6 Hours Per Day (ICD-10-PCS; 2018-08-10)
PROC: 5A1D70Z Performance of Urinary Filtration, Intermittent, Less than 6 Hours Per Day (ICD-10-PCS; 2018-08-12)
PROC: 5A1D70Z Performance of Urinary Filtration, Intermittent, Less than 6 Hours Per Day (ICD-10-PCS; 2018-08-14)
PROC: 5A1D70Z Performance of Urinary Filtration, Intermittent, Less than 6 Hours Per Day (ICD-10-PCS; 2018-08-17)
PROC: 02HV33Z Insertion of Infusion Device into Superior Vena Cava, Percutaneous Approach (ICD-10-PCS; 2018-08-18)
PROC: B5181ZA Fluoroscopy of Superior Vena Cava using Low Osmolar Contrast, Guidance (ICD-10-PCS; 2018-08-18)
PROC: B548ZZA Ultrasonography of Superior Vena Cava, Guidance (ICD-10-PCS; 2018-08-18)
PROC: 5A1D70Z Performance of Urinary Filtration, Intermittent, Less than 6 Hours Per Day (ICD-10-PCS; 2018-08-19)
PROC: 5A1D70Z Performance of Urinary Filtration, Intermittent, Less than 6 Hours Per Day (ICD-10-PCS; 2018-08-21)
PROC: 5A1D70Z Performance of Urinary Filtration, Intermittent, Less than 6 Hours Per Day (ICD-10-PCS; 2018-08-23)
DX: A40.9 Streptococcal sepsis, unspecified (principal); I50.33 Acute on chronic diastolic (congestive) heart failure; N18.6 End stage renal disease; I13.2 Hypertensive heart and chronic kidney disease with heart failure and with stage 5 chronic kidney disease, or end stage renal disease; I42.9 Cardiomyopathy, unspecified; N25.81 Secondary hyperparathyroidism of renal origin; E11.22 Type 2 diabetes mellitus with diabetic chronic kidney disease; D63.8 Anemia in other chronic diseases classified elsewhere; E87.5 Hyperkalemia; Z99.2 Dependence on renal dialysis; F10.10 Alcohol abuse, uncomplicated; E87.8 Other disorders of electrolyte and fluid balance, not elsewhere classified; F32.9 Major depressive disorder, single episode, unspecified; E78.00 Pure hypercholesterolemia, unspecified; E78.5 Hyperlipidemia, unspecified; E83.39 Other disorders of phosphorus metabolism; F17.210 Nicotine dependence, cigarettes, uncomplicated; G40.909 Epilepsy, unspecified, not intractable, without status epilepticus; H54.7 Unspecified visual loss; I27.20 Pulmonary hypertension, unspecified; Z79.899 Other long term (current) drug therapy; Z83.3 Family history of diabetes mellitus; Z82.49 Family history of ischemic heart disease and other diseases of the circulatory system; Z85.3 Personal history of malignant neoplasm of breast; Z86.73 Personal history of transient ischemic attack (TIA), and cerebral infarction without residual deficits; Z91.11 Patient's noncompliance with dietary regimen; Z91.14 Patient's other noncompliance with medication regimen; Z91.15 Patient's noncompliance with renal dialysis; Z95.810 Presence of automatic (implantable) cardiac defibrillator; Z88.8 Allergy status to other drugs, medicaments and biological substances; Z91.013 Allergy to seafood
CPT/HCPCS: 36415; 36569; 36589; 71045; 71260; 76881; 76937; 77001; 80048; 80061; 80202; 82550; 82553; 82962; 83036; 83735; 83880; 84100; 84484; 85027; 85651; 86140; 86301; 86705; 86706; 86803; 87077; 87186; 87340; 87389; 93005; 93306; 93970; 94640; 94644; 96374; 96375; 97161; 97166; 99283; 99291; C1725; C1893; G0482; J0696; J0885; J1200; J1642; J1650; J1815; J1940; J2060; J2405; J3370; J3490; J7040; J7050; J7060; J7611; J7620; Q9967

== ENCOUNTER 2018-09-09 17:08 | Inpatient (IN) | payer MEDICARE ==
[~2018-09-09] VITALS: Ht 160 cm; Wt 79.8 kg
[2018-09-09 19:50] LABS: BASOPHILS % 1.7 % (0.0-2.0); EOSINOPHILS % 6.2 % (0.0-5.0); HEMATOCRIT. 33.3 % (36.0-48.0); HEMOGLOBIN. 10.5 g/dL (12.0-16.0); LYMPHOCYTES % 23.2 % (20.0-50.0); MEAN CORPUSCULAR HEMOGLOBIN 30.2 pg (28.0-32.0); MEAN PLATELET VOLUME 8.3 fl (7.4-10.4); MONOCYTES % 7.7 % (2.0-8.0); NEUTROPHILS % 61.2 % (40.0-76.0); PLATELET 169 x1000/uL (130-400); RED BLOOD CELL COUNT 3.46 mill/uL (4.2-5.4); RED CELL DISTRIBUTION WIDTH 23.1 % (11.6-14.6)
[2018-09-09 19:53] LABS: CHLORIDE 96 mEq/L (98-107); INR 1.3; PROTHROMBIN TIME 12.6 sec (9.1-11.1)
[2018-09-09 19:57] LABS: ETHANOL BLOOD < 10 mg/dL
[2018-09-09 20:26] LABS: PLATELET ESTIMATE NORMAL
[2018-09-09] MEDS ORDERED: SODIUM POLYSTYRENE SULFONATE 15 G/60 ML BOT PO ONE (21:30)
[2018-09-09] MEDS ORDERED: DOCUSATE SODIUM 100MG CAPSULE PO PRN (23:45)
[2018-09-09] MEDS ORDERED: ACETAMINOPHEN 325MG TABLET PO PRN (23:45)
[2018-09-09] MEDS ORDERED: GUAIFENESIN 200MG/10ML SUGAR FREE UDC PO PRN (23:45)
[2018-09-09] MEDS ORDERED: CLONIDINE 0.1MG TABLET PO PRN (23:45)
[2018-09-09] MEDS ORDERED: ONDANSETRON HCL 4MG/2ML INJ IV PRN (23:45)
[2018-09-09] MEDS ORDERED: HYDROCODONE/ACETAMINOPHEN 5/325MG TABLET PO PRN (23:45)
[2018-09-09] MEDS ORDERED: HYDROMORPHONE HCL/PF 2MG/ML CPJ IV PRN (23:45)
[2018-09-10] VITALS (7 sets, daily range): BP systolic 154–182; BP diastolic 65–94
[2018-09-10] MEDS: DIPHENHYDRAMINE 50MG/ML VIAL IV PRN ×4 (00:50→23:39)
[2018-09-10] MEDS ORDERED: CARV3.1242 PO (01:54)
[2018-09-10] MEDS ORDERED: CLON0.2T PO (01:54)
[2018-09-10 07:14] LABS: BASOPHILS % 1.6 % (0.0-2.0); EOSINOPHILS % 8.9 % (0.0-5.0); HEMATOCRIT. 29.8 % (36.0-48.0); HEMOGLOBIN. 9.5 g/dL (12.0-16.0); LYMPHOCYTES % 25.4 % (20.0-50.0); MEAN CORPUSCULAR HEMOGLOBIN 29.9 pg (28.0-32.0); MEAN CORPUSCULAR VOLUME 93.5 fL (81.0-99.0); MEAN PLATELET VOLUME 7.9 fl (7.4-10.4); MONOCYTES % 10.3 % (2.0-8.0); NEUTROPHILS % 53.8 % (40.0-76.0); PLATELET 173 x1000/uL (130-400); RED BLOOD CELL COUNT 3.18 mill/uL (4.2-5.4); RED CELL DISTRIBUTION WIDTH 22.6 % (11.6-14.6)
[2018-09-10 09:41] LABS: CHLORIDE 99 mEq/L (98-107)
[2018-09-10] MEDS: METOPROLOL TARTRATE 50MG TABLET PO SCH ×2 (10:00→21:08)
[2018-09-10] MEDS: ASPIRIN 325MG EC TABLET PO SCH (10:00)
[2018-09-10] MEDS: AMLODIPINE 10MG TABLET PO SCH (10:00)
[2018-09-10] MEDS: FOLIC ACID/VITAMIN B COMP W-C TABLET PO SCH (10:00)
[2018-09-10] MEDS: ENOXAPARIN 30MG/0.3ML SYR SUBCUT SCH (10:00)
[2018-09-10] MEDS: LEVETIRACETAM 500MG TABLET PO SCH ×2 (10:00→21:07)
[2018-09-10] MEDS: CALCIUM ACETATE 667MG CAPSULE PO SCH ×2 (12:11→18:44)
[2018-09-10] MEDS ORDERED: EPOETIN ALFA 4000UNITS/ML VIAL SUBCUT SCH (21:00)
[2018-09-10] MEDS: MIRTAZAPINE 15MG TABLET PO SCH (21:07)
[2018-09-10] MEDS: FAMOTIDINE 20MG TABLET PO SCH (21:07)
[2018-09-11 00:11] VITALS: BP 154/71
[2018-09-11 04:00] VITALS: BP 155/81
[2018-09-11] MEDS: CALCIUM ACETATE 667MG CAPSULE PO SCH ×3 (07:50→17:30)
[2018-09-11 08:00] VITALS: BP 131/81
[2018-09-11] MEDS: ASPIRIN 325MG EC TABLET PO SCH (09:00)
[2018-09-11] MEDS: METOPROLOL TARTRATE 50MG TABLET PO SCH ×2 (09:00→20:59)
[2018-09-11] MEDS: FOLIC ACID/VITAMIN B COMP W-C TABLET PO SCH (09:00)
[2018-09-11] MEDS: AMLODIPINE 10MG TABLET PO SCH (09:00)
[2018-09-11] MEDS: ENOXAPARIN 30MG/0.3ML SYR SUBCUT SCH (09:00)
[2018-09-11] MEDS: LEVETIRACETAM 500MG TABLET PO SCH ×2 (09:00→20:59)
[2018-09-11 10:33] LABS: BASOPHILS % 2.4 % (0.0-2.0); EOSINOPHILS % 7.1 % (0.0-5.0); HEMATOCRIT. 29.4 % (36.0-48.0); HEMOGLOBIN. 9.6 g/dL (12.0-16.0); LYMPHOCYTES % 15.9 % (20.0-50.0); MEAN CORPUSCULAR HEMOGLOBIN 30.1 pg (28.0-32.0); MEAN CORPUSCULAR VOLUME 92.7 fL (81.0-99.0); MEAN PLATELET VOLUME 7.9 fl (7.4-10.4); MONOCYTES % 4.6 % (2.0-8.0); PLATELET 136 x1000/uL (130-400); RED BLOOD CELL COUNT 3.17 mill/uL (4.2-5.4); RED CELL DISTRIBUTION WIDTH 22.8 % (11.6-14.6)
[2018-09-11 10:49] LABS: PHOSPHORUS 6.9 mg/dL (2.5-4.9)
[2018-09-11 12:00] VITALS: BP 141/76
[2018-09-11 16:00] VITALS: BP 147/80
[2018-09-11 20:00] VITALS: BP 138/103
[2018-09-11] MEDS: FAMOTIDINE 20MG TABLET PO SCH (20:59)
[2018-09-11] MEDS: MIRTAZAPINE 15MG TABLET PO SCH (20:59)
[2018-09-12] VITALS: BP 137/76
[2018-09-12] MEDS: DIPHENHYDRAMINE 50MG/ML VIAL IV PRN (01:28)
[2018-09-12 05:14] VITALS: BP 126/50
[2018-09-12 06:37] LABS: PHOSPHORUS 6.8 mg/dL (2.5-4.9)
[2018-09-12 07:02] LABS: BASOPHILS % 0.9 % (0.0-2.0); EOSINOPHILS % 3.5 % (0.0-5.0); HEMATOCRIT. 31.3 % (36.0-48.0); LYMPHOCYTES % 14.5 % (20.0-50.0); MEAN CORPUSCULAR HEMOGLOBIN 30.1 pg (28.0-32.0); MEAN CORPUSCULAR VOLUME 94.4 fL (81.0-99.0); MONOCYTES % 10.4 % (2.0-8.0); NEUTROPHILS % 70.7 % (40.0-76.0); PLATELET 141 x1000/uL (130-400); RED BLOOD CELL COUNT 3.31 mill/uL (4.2-5.4); RED CELL DISTRIBUTION WIDTH 23.9 % (11.6-14.6)
[2018-09-12 08:00] VITALS: BP 122/66
[2018-09-12] MEDS: ASPIRIN 325MG EC TABLET PO SCH (08:22)
[2018-09-12] MEDS: LEVETIRACETAM 500MG TABLET PO SCH ×2 (08:22→21:15)
[2018-09-12] MEDS: CALCIUM ACETATE 667MG CAPSULE PO SCH ×3 (08:22→18:18)
[2018-09-12] MEDS: ENOXAPARIN 30MG/0.3ML SYR SUBCUT SCH (08:24)
[2018-09-12] MEDS: AMLODIPINE 10MG TABLET PO SCH (09:00)
[2018-09-12] MEDS: METOPROLOL TARTRATE 50MG TABLET PO SCH ×2 (09:00→21:15)
[2018-09-12] MEDS: FOLIC ACID/VITAMIN B COMP W-C TABLET PO SCH (09:54)
[2018-09-12 12:00] VITALS: BP 153/81
[2018-09-12 16:00] VITALS: BP 121/69
[2018-09-12 20:19] VITALS: BP 121/73
[2018-09-12] MEDS: MIRTAZAPINE 15MG TABLET PO SCH (21:15)
[2018-09-12] MEDS: FAMOTIDINE 20MG TABLET PO SCH (21:15)
[2018-09-13] VITALS (7 sets, daily range): BP systolic 117–170; BP diastolic 66–99
[2018-09-13] MEDS: CALCIUM ACETATE 667MG CAPSULE PO SCH ×3 (07:16→17:49)
[2018-09-13] MEDS: FOLIC ACID/VITAMIN B COMP W-C TABLET PO SCH (09:08)
[2018-09-13] MEDS: AMLODIPINE 10MG TABLET PO SCH (09:08)
[2018-09-13] MEDS: ASPIRIN 325MG EC TABLET PO SCH (09:08)
[2018-09-13] MEDS: LEVETIRACETAM 500MG TABLET PO SCH ×2 (09:08→21:00)
[2018-09-13] MEDS: ENOXAPARIN 30MG/0.3ML SYR SUBCUT SCH (09:09)
[2018-09-13] MEDS: METOPROLOL TARTRATE 50MG TABLET PO SCH ×2 (09:09→21:00)
[2018-09-13 09:39] LABS: PLATELET ESTIMATE NORMAL
[2018-09-13 09:57] LABS: BASOPHILS % 1.7 % (0.0-2.0); HEMATOCRIT. 35.6 % (36.0-48.0); LYMPHOCYTES % 21.6 % (20.0-50.0); MEAN CORPUSCULAR HEMOGLOBIN 30.3 pg (28.0-32.0); MEAN CORPUSCULAR VOLUME 97.6 fL (81.0-99.0); MEAN PLATELET VOLUME 7.9 fl (7.4-10.4); MONOCYTES % 12.5 % (2.0-8.0); NEUTROPHILS % 59.2 % (40.0-76.0); PLATELET 129 x1000/uL (130-400); RED BLOOD CELL COUNT 3.65 mill/uL (4.2-5.4); RED CELL DISTRIBUTION WIDTH 24.4 % (11.6-14.6)
[2018-09-13 10:15] LABS: PHOSPHORUS 6.3 mg/dL (2.5-4.9)
[2018-09-13] MEDS ORDERED: SODIUM POLYSTYRENE SULFONATE 15 G/60 ML BOT PO SCH (14:00)
[2018-09-13] MEDS: MIRTAZAPINE 15MG TABLET PO SCH (21:00)
[2018-09-13] MEDS: FAMOTIDINE 20MG TABLET PO SCH (21:00)
[2018-09-14] VITALS: BP 125/53
[2018-09-14 04:00] VITALS: BP 153/83
[2018-09-14 08:00] VITALS: BP 138/71
[2018-09-14] MEDS: ASPIRIN 325MG EC TABLET PO SCH (08:45)
[2018-09-14] MEDS: LEVETIRACETAM 500MG TABLET PO SCH (08:45)
[2018-09-14] MEDS: FOLIC ACID/VITAMIN B COMP W-C TABLET PO SCH (08:45)
[2018-09-14] MEDS: AMLODIPINE 10MG TABLET PO SCH (08:45)
[2018-09-14] MEDS: CALCIUM ACETATE 667MG CAPSULE PO SCH ×2 (08:45→12:50)
[2018-09-14] MEDS: METOPROLOL TARTRATE 50MG TABLET PO SCH (08:45)
[2018-09-14 12:00] VITALS: BP 136/88
[2018-09-14 12:11] VITALS: BP 138/71
== END 2018-09-14 14:36 | disposition home health service (06) | DRG 291 ==
LOC: ER 17:08 → 6WST 21:22 → ENRESERV 22:20 → SUPCPDRO 23:29
PROVIDERS: ADMIT Hospitalist; ATTEND Hospitalist
PROC: 5A1D70Z Performance of Urinary Filtration, Intermittent, Less than 6 Hours Per Day (ICD-10-PCS; principal; 2018-09-11)
PROC: 5A1D70Z Performance of Urinary Filtration, Intermittent, Less than 6 Hours Per Day (ICD-10-PCS; 2018-09-14)
DX: I13.2 Hypertensive heart and chronic kidney disease with heart failure and with stage 5 chronic kidney disease, or end stage renal disease (principal); I50.33 Acute on chronic diastolic (congestive) heart failure; N18.6 End stage renal disease; N25.81 Secondary hyperparathyroidism of renal origin; E11.22 Type 2 diabetes mellitus with diabetic chronic kidney disease; E87.5 Hyperkalemia; G40.909 Epilepsy, unspecified, not intractable, without status epilepticus; D63.1 Anemia in chronic kidney disease; K21.9 Gastro-esophageal reflux disease without esophagitis; F32.9 Major depressive disorder, single episode, unspecified; F41.9 Anxiety disorder, unspecified; M19.90 Unspecified osteoarthritis, unspecified site; H54.40 Blindness, one eye, unspecified eye; I27.20 Pulmonary hypertension, unspecified; F17.200 Nicotine dependence, unspecified, uncomplicated; Z59.0 Homelessness; Z79.82 Long term (current) use of aspirin; I69.398 Other sequelae of cerebral infarction; Z99.2 Dependence on renal dialysis; Z91.15 Patient's noncompliance with renal dialysis; Z91.14 Patient's other noncompliance with medication regimen; Z90.13 Acquired absence of bilateral breasts and nipples; Z95.810 Presence of automatic (implantable) cardiac defibrillator; Z79.899 Other long term (current) drug therapy; Z88.8 Allergy status to other drugs, medicaments and biological substances; Z86.74 Personal history of sudden cardiac arrest; Z86.79 Personal history of other diseases of the circulatory system; Z91.128 Patient's intentional underdosing of medication regimen for other reason; Z85.3 Personal history of malignant neoplasm of breast; Z91.19 Patient's noncompliance with other medical treatment and regimen; Z82.49 Family history of ischemic heart disease and other diseases of the circulatory system; Z83.3 Family history of diabetes mellitus
CPT/HCPCS: 36415; 71045; 80048; 82962; 83735; 84100; 93005; 93306; 93970; 96374; 99285; C1893; J0885; J1170; J1200; J1650; J2405; J7040